=== PATIENT | female | born 1990 | race Caucasian/White ===

== ENCOUNTER 2017-02-22 16:35 | Emergency (ER) | payer SELFPAY ==
[~2017-02-22] VITALS: Ht 177.8 cm; Wt 72.6 kg
[2017-02-22 16:46] VITALS: BP_SYST 125
--- NOTE | 2017-02-22 16:46 | NUR ---
Patient to ER bed 03 to gown for evaluation. Side rails up. Report received from JEFF Mott.
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
--- NOTE | 2017-02-22 16:53 | NUR ---
ER Dr. Webb at bedside examining patient.
--- NOTE | 2017-02-22 17:13 | NUR ---
[facility] Officer Roc Mcmanus arrived to speak with patient at bedside.
[2017-02-22 17:19] LABS: EOSINOPHILS # (AUTO) 0.1 K/uL (0.0-0.4); EOSINOPHILS % (AUTO) 1.5 % (0.0-4.0); HEMATOCRIT 43.8 % (36-48); HEMOGLOBIN 14.3 g/dL (12.0-16.0); LYMPHOCYTES # (AUTO) 1.3 K/uL (1.0-5.5); LYMPHOCYTES % (AUTO) 30.3 % (20.5-51.5); MEAN CORPUSCULAR HEMOGLOBIN 32 pg (27-31); MEAN CORPUSCULAR HGB CONC 33 % (32-36); MEAN CORPUSCULAR VOLUME 99 fL (79.0-98.0); MONOCYTES # (AUTO) 0.2 K/uL (0.0-1.0); MONOCYTES % (AUTO) 5.6 % (1.7-9.3); PLATELET COUNT (AUTO) 439 K/uL (130-430); RED BLOOD CELL COUNT(AUTO) 4.44 MIL/uL (4.2-6.2); RED CELL DISTRIBUTION WIDTH 13.6 % (9.0-15.0); WHITE BLOOD COUNT (AUTO) 4.4 K/uL (4.8-10.8)
[2017-02-22 17:23] LABS: BASOPHILS % (AUTO) 0.8 % (0.0-2.0); NEUTROPHILS # (AUTO) 2.8 K/uL (1.8-7.7); NEUTROPHILS % (AUTO) 61.8 % (40.0-70.0)
[2017-02-22 17:34] LABS: ANION GAP 9 (5-15); CHLORIDE 106 mmol/L (98-107); CREATININE 0.63 mg/dL (0.55-1.30); GLUCOSE 95 mg/dL (70-99); POTASSIUM 3.9 mmol/L (3.5-5.1); SODIUM SERUM 145 mmol/L (136-145); UREA NITROGEN, BLOOD 5 mg/dL (8-21)
[2017-02-22 17:35] LABS: GFR AFRICAN AMERICAN 145 mL/min (>90)
[2017-02-22 17:48] LABS: ALANINE AMINOTRANSFERASE 31 U/L (12-78); ASPARTATE AMINOTRANSFERASE 33 U/L (10-37); TOTAL BILIRUBIN 0.3 mg/dL (0.0-1.0)
[2017-02-22 17:49] LABS: ACETAMINOPHEN < 1 ug/mL (1-30)
--- NOTE | 2017-02-22 18:36 | NUR ---
Pt resting comfortably in hospital bed. [facility] at bedside questioning patient.
[2017-02-22 18:43] LABS: HCG,QUANTITATIVE 1 mIU/ML (0-6)
[2017-02-22 18:49] LABS: ALCOHOL, BLOOD 487 mg/dL (<10)
--- NOTE | 2017-02-22 19:05 | NUR ---
Endorsed care to JEFF Abbasi.
[2017-02-22] MEDS ORDERED: NACL 0.9% 1,000 ML IV ONE (19:45)
--- NOTE | 2017-02-22 20:10 | NUR ---
# 20 gauge angiocath placed to L AC. Use of asceptic technique. Opsite placed over site. Blood return noted. Flushed with 10 cc of normal saline. No evidence of infiltration noted. Patient tolerated well.
--- NOTE | 2017-02-22 20:15 | NUR ---
Medication would not scan. Full name, , and allergies confirmed before administration.
--- NOTE | 2017-02-22 20:30 | NUR ---
Pt refused to give urine. Dr. Lange made aware.
[2017-02-22 21:04] VITALS: BP_SYST 118
--- NOTE | 2017-02-22 21:04 | NUR ---
Pt discharged to [facility] custody. AAOx4. IV removed without incident. No distress noted.
== END 2017-02-22 21:04 ==
LOC: SED 16:35
DX: Z02.89 Encounter for other administrative examinations (principal); F10.129 Alcohol abuse with intoxication, unspecified; R51 Headache; V89.2XXA Person injured in unspecified motor-vehicle accident, traffic, initial encounter; Y93.89 Activity, other specified; Y92.411 Interstate highway as the place of occurrence of the external cause; Y99.8 Other external cause status
CPT/HCPCS: 36415; 70450; 80053; 82550; 84484; 84702; 85025; 85730; 93005; 96360; 99285; G0480; G0481; G0482; J7030